=== PATIENT | female | born 1965 | race Caucasian/White ===

== ENCOUNTER 2024-07-08 08:38 | Outpatient (REF) | payer OTHER, SELFPAY ==
[2024-07-08 08:52] LABS: MANUAL DIFF FLAG NO
[2024-07-08 09:26] LABS: Basophils Percent Auto 1.1 % (0-2); Eosinophils Percent Auto 1.1 % (0-4); Hematocrit 41.3 % (37.0-47.0); Hemoglobin 13.7 g/dl (12.0-16.0); Imm Gran Abs Auto 0.01 X10*3/uL (0.00-0.03); Imm Gran Pct Auto 0.3 % (0.0-0.4); Lymphocytes Absolute Auto 1.4 X10*3/uL (1.2-4.9); Lymphocytes Percent Auto 38.7 % (20-40); Mean Corpuscular HGB Conc 33.2 g/dl (31.0-35.0); Mean Corpuscular Hemoglobin 29.1 pg (27.0-33.0); Mean Corpuscular Volume 87.7 fL (80.0-98.0); Mean Platelet Volume 9.1 fL (9.4-12.3); Monocytes Absolute Auto 0.2 X10*3/uL (0.1-1.2); Monocytes Percent Auto 6.3 % (2-11); Neutrophils Absolute Auto 1.8 x10*3/uL (2.0-8.3); Neutrophils Percent Auto 52.5 % (45-73); Platelet Count 276 X10*3/uL (160-400); Red Blood Count 4.71 X10*6/uL (4.20-5.50); Red Cell Distribution Width 11.9 % (11.0-16.0); White Blood Count 3.5 X10*3/uL (4.8-10.8)
[2024-07-08 09:34] LABS: Estimated Average Glucose 105 mg/dL; Hemoglobin A1C 115.9673 umol/L; Hemoglobin A1c % 5.3 % (<6.0); Total Hemoglobin (HGBA1C) 3409.4067 umol/L
[2024-07-08 09:53] LABS: Alanine Aminotransferase 21 U/L (0-31); Albumin Level 4.4 g/dL (3.5-5.0); Alkaline Phosphatase 76 U/L (39-117); Anion Gap 12 (12-20); Aspartate Amino Transferase 18 U/L (5-31); Bilirubin Total 0.7 mg/dL (0.0-1.0); Blood Urea Nitrogen 12 mg/dL (9-16); Calcium 9.6 mg/dL (8.4-10.2); Carbon Dioxide 26 mmol/L (22-29); Chloride 109 mmol/L (96-108); Cholesterol 193 mg/dL (<200); Estimated Glomerular Filt Rate > 60; Glucose Random 87 mg/dL (60-115); HDL Cholesterol 73 mg/dL (>40); LDL Cholesterol Calculated 107 mg/dL (<100); Potassium 4.2 mmol/L (3.3-5.1); Sodium 143 mmol/L (135-145); Total Protein 6.9 g/dL (6.5-8.0); Triglycerides 67 mg/dL (<150)
[2024-07-08 10:10] LABS: TSH reflex Free T4 2.17 uIU/mL (0.32-4.0)
[2024-07-08 10:18] LABS: Folate 11.9 ng/mL (> or = 4.0); Vitamin B12 404 pg/mL (200-900)
[2024-07-10 19:08] LABS: Lyme Abs Screen <0.90 index
[2024-07-12 13:18] LABS: Vitamin D 25-OH, D2 <4 ng/mL; Vitamin D 25-OH, D3 13 ng/mL; Vitamin D 25-OH, Total 13 ng/mL (30-100)
[2024-07-13 18:19] LABS: N-Telopeptide 152 (see note); NTXCreaRU 128 mg/dL (20-275)
[2024-07-14 00:02] LABS: VITAMIN D (1,25 OH) D3 50 pg/mL; Vit D (1,25-Dihydroxy) Total 50 pg/mL (18-72); Vitamin D (1,25 OH) D2 <8 pg/mL
== END 2024-07-08 08:39 | disposition home or self-care (01) ==
LOC: HO.LAB 08:38
PROVIDERS: PCP Internal Medicine; Visit Provider Internal Medicine
DX: R53.83 Other fatigue (principal); M81.0 Age-related osteoporosis without current pathological fracture; G62.9 Polyneuropathy, unspecified; Z13.220 Encounter for screening for lipoid disorders; Z13.228 Encounter for screening for other metabolic disorders; Z13.1 Encounter for screening for diabetes mellitus
CPT/HCPCS: 36415; 80053; 80061; 82306; 82523; 82607; 82652; 82746; 83036; 84443; 85025; 86617; 86618

== ENCOUNTER 2024-09-08 14:37 | Outpatient (AMB) | payer OTHER, SELFPAY ==
--- NOTE | 2024-09-08 14:06 | A.OFFPC_ITS ---
Vital Signs 09/08/24 14:49 Height 5 ft 8.11 in Weight 144 lb 6 oz BMI 21.9 BP 118/76 Blood Pressure Location Lt brachial Position Sitting Respiration 14 Pulse 73 Pulse Source Pulse Oximeter Pulse Oximetry (%) 98 Oxygen Delivery Method Room Air Intake Visit Reasons: Est. Care Intake Note: New patient visit Employment Program Representative Required: No Allergies Penicillins Allergy (Unknown, Verified 09/08/24 14:08) Unknown sulfamethoxazole [From Bactrim] Allergy (Unknown, Verified 09/08/24 14:08) Unknown trimethoprim [From Bactrim] Allergy (Unknown, Verified 09/08/24 14:08) Unknown Tobacco use date assessed: 09/08/24 Dental Screening Dental Screen Date: 09/08/24 Did you have a dental visit in the last 12 months?: Yes Did you have a dental problem in the last 6 months where you did not have access to dental care?: No Was dental information given to patient?: Patient has dentist HPI HPI Comments History of Present Illness Details 59 year old female with a past medical h istory of chronic cough, microscopy hematuria, osteopenia, peripheral neuropathy presenting for physical exam Patient has a history of bilateral leg, foot numbness, hand numbness tingling. Started in 40s. Sometimes leg feel weak. Has stayed pretty stable over time. 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 Chronic cough, recurrent sore throat: stable. has seen pulmonary. Family history of thyroid disease. On allergy medications. No fevers, LN, abnormal weight loss Mammo, DXA due Pap 2018-she says she will call to schedule Colonoscopy-2021 ROS CONSTITUTIONAL: Denies weight loss, fever and chills. HEENT: Denies changes in vision and hearing. RESPIRATORY: Denies SOB and cough. CV: Denies palpitations and CP GI: Denies abdominal pain, nausea, vomiting and diarrhea. : Denies dysuria and urinary frequency. MSK: Denies new myalgia and joint pain. SKIN: Denies rash and pruritus. NEUROLOGICAL: Denies headache PSYCHIATRIC: Denies recent changes in mood. PHYSICAL EXAM: GENERAL: Alert and oriented x 3. NAD EYES: EOMI. Anicteric. HENT: Moist mucous membranes. No scleral icterus. No cervical lymphadenopathy. LUNGS: Clear to auscultation bilaterally. CARDIOVASCULAR: Regular rate and rhythm. No murmur. No JVD. ABDOMEN: Soft, non-tender +bs EXTREMITIES: No edema. Non-tender. SKIN: No rashes or lesions. Warm. NEUROLOGIC: No focal neurological deficits. CN II-XII grossly intact PSYCHIATRIC: Cooperative. 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 Current occupational exposures/hazards: No Cognitive needs: No Hearing needs: No Vision needs: Yes (reading glasses) Questionnaire Thrive Questionnaire Date Thrive assessed: 07/31/24 Physical exam (Primary Care) Vital Signs: Last Vital Signs Pulse 73 09/08/24 14:49 Resp 14 09/08/24 14:49 BP 118/76 09/08/24 14:49 Pulse Ox 98 09/08/24 14:49 Oxygen Delivery Method Room Air 09/08/24 14:49 BMI result Body Mass Index 21.9 Tobacco/Smoking Status: Tobacco use Status Tobacco use date assessed 09/08/24 09/08/24 14:51 Patient Tobacco Use Status Never used Tobacco 09/08/24 14:51 e-Cigarette/Vaping Use Never Used 09/08/24 14:51 Thrive Assessment: Date of Thrive Assessment Date Thrive assessed 07/31/24 09/08/24 14:10 Coding Level of Care Code Est Pt Prev Care 40-64y(37639) Diagnoses Physical exam Z00.00 Peripheral polyneuropathy G62.9 Peripheral neuropathy type: polyneuropathy, unspecified Assessment & Plan Assessment & Plan (1) Physical exam: Code(s): Z00.00 - Encounter for general adult medical examination without abnormal findings Category: Medical Plan: 59 year old female for physical exam. Chronic medical conditions reviewed. Interval history reviewed. Medications reconciled (2) Peripheral neuropathy: Code(s): G62.9 - Polyneuropathy, unspecified Category: Medical Qualifiers: Peripheral neuropathy type: polyneuropathy, unspecified Qualified Code(s): G62.9 - Polyneuropathy, unspecified Plan: Discussed EMG, MRI. there has been no progression of disease so she declines Orders: Orders MM screening mammo BI 09/08/24 Z12.31 - Encounter for screening mammogram for malignant neoplasm of breast XR DEXA axial skeleton 09/08/24 M81.0 - Age-related osteoporosis without current pathological fracture
[2024-09-08 14:49] VITALS: BP 118/76; PULSE 73; RESP 14; O2SAT 98; BMI 21.9
--- OUTSIDE RECORDS SUMMARY | 2024-09-08 16:19 | XMS_ITS | Clinical Summary ---
Author Organization [facility] [facility] lin Address [address] [place] [address] Care Team Providers Care Associate Spa Director Name Role Phone Unavailable Primary Care Provider Unavailabl e Social History Tobacco Use Types Packs/Day Years Used Date Smoking Tobacco: Never Assessed Comments Unknown Sex and Gender Information Value Date Recorded Sex Assigned at Not on file Legal Sex Female 6:39 AM EDT Gender Identity Not on file Sexual Orientation Not on file Last Filed Vital Signs Vital Sign Reading Time Taken Comments Blood Pressure - - Pulse 94 02/25/2021 10:28 AM EDT Temperature 36.7 ??C (98 ??F) 02/25/2021 10:28 AM EDT Respiratory Rate - - Oxygen Saturation 99% 02/25/2021 10:28 AM EDT Inhaled Oxygen Concentration - - Weight - - Height - - Body Mass Index - - Plan of Treatment Health Maintenance Due Date Last Done Comments Colorectal Cancer: COLONOSCO PY Screening every 10 yrs (or Modifier) 1964 Depression: Screening Annual ly using PHQ-2/9 in Adults 18 yrs or above (or HM Modifier)([facility]) 1982 Hepatitis C Virus Infection in Adolescents and Adults: Screening (or Modifier) ([facility]) 1982 SDLA Screening Reminder: Annually for all adults ([facility]) 1982 Tobacco Smoking Cessation: i n Adults excluding Women: Behavioral and Pharmacotherapy Interventions ([facility]) 1982 DTaP/Tdap/Td Vaccines ([facility]) (1 - Tdap) 1983 Cervical Cancer Screenin-65 yrs of age (or Modifier) 1985 Cervical Cancer Screening: P ap every 3 yrs pts age 21-65 1985 Cervical Cancer: Pap Screeni ng with Modifier timing ([facility]) 1985 Cervical Cancer: hrHPV alone or with cotesting Pap for Pts 30-65yrs screening every 5yrs ([facility]) 1985 Colorectal Cancer Screening 45 -75 Yrs (or HM Modifier) 2009 Colorectal Cancer: FLEXIBLE SIGMOIDOSCOPY Screening every 5 yrs 2009 Colorectal Cancer: Fecal Immunochemical Test (FIT) Annually [facility] 2009 Colorectal Cancer: High-sensitivity gFOBT Screening Annually [facility] 2009 Colorectal Cancer: Stool Cologuard Screening every 3 yrs 2009 Colorectal Cancer:CT Colonography Screening every 5 yrs 2009 Lipid Screening: Every 5 yrs for Women aged 45+ (or HM Modifier) ([facility]) 2010 Breast Cancer: Screening Annually age 50-74 yrs (or HM Modifier)([facility]) 2014 Zoster/Shingles Vaccine Seri es Screening: Adults aged 18+ yrs (or HM Modifiers)([facility]) (1 of 2) 2014 Flu Vaccination: Yearly for ages 18mos through 64 years (or Modifier)([facility]) 02/03/2024 COVID-19 Vaccine Screening: Initial Series and Booster Status ([facility]) (3 - 2023-25 season) 2024 10/29/2020, 09/25/2020 RSV Vaccines (1 - 1-dose 75+ series) 2039 Pneumococcal Vaccination Screening: Pts 0-19 & 19-64 yrs of age ([facility]) Aged Out No longer eligible based on patient's age to complete this topic Medical Devices Not on file Insurance [facility]
--- OUTSIDE RECORDS SUMMARY | 2024-09-08 16:19 | XMS_ITS | Clinical Summary ---
Author Organization [facility] Address [address] [place] [address] Care Team Providers Care Miner Pick Name Role Phone Unavailable Primary Care Provider Unavailabl e Source Comments PLEASE NOTE, if this patient is a minor, it may be UNLAWFUL to discuss sensitive information that is contained in these records (such as FAMILY PLANNING, MENTAL HEALTH or SUBSTANCE ABUSE) with the minor patient's parent or other person without the patient's specific authorization.[facility] Immunizations Name Administration Dates Next Due Moderna COVID-19 Vaccine, re d cap blue label, 12+ Primary Series 10/29/2020,09/25/2020 Social History Tobacco Use Types Packs/Day Years Used Date Smoking Tobacco: Never Assessed Social Connections Answer Date Recorded Social Connections and Isolation 0 09/25/2020 Financial Resource Strain Answer Date R ecorded Financial Resource Strain 0 2020 Stress Answer Date Recorded Stress 0 09/25/2020 Physical Activity Answer Date Recorded Physical Activity 0 09/25/2020 Food Insecurity Answer Date Recorded Food 0 09/25/2020 Transportation Needs Answer Date Record ed Transportation 0 09/25/2020 Housing Stability Answer Date Recorded Housing 0 09/25/2020 Safety and Environment Answer Date Bernardo rded Safety 0 09/25/2020 Utilities Answer Date Recorded Utilities 0 09/25/2020 Employment Answer Date Recorded Employment 0 09/25/2020 Comments Unknown Sex and Gender Information Value Date Recorded Sex Assigned at Not on file Legal Sex Female 10:50 AM PDT Gender Identity Not on file Sexual Orientation Not on file Plan of Treatment Health Maintenance Due Date Last Done Comments Diabetes Screening 1964 HPV Screening 1964 Hepatitis C Screening 1964 Lipid Screening 1964 Pap + HPV 1964 Tobacco Screening 1964 HIV Screening 1979 Annual Preventive Care Visit 1982 Hypertension Screening (#1) 1982 Imm-DTaP/Tdap/Td (1 - Tdap) 1983 Cervical Cancer Screening 1985 Pap Smear 1985 Breast Cancer Screening (Mammogram) 2004 CT Colonography 2009 Colonoscopy 2009 Colorectal Cancer Screening 2009 FIT/gFOBT 2009 Fecal DNA 2009 Flexible Sigmoidoscopy 2009 Imm-Zoster, Recombinant (1 o f 2) 2014 [id number] ( season) 2024 10/29/2020, 09/25/2020 Imm-Influenza (#1) 2024 06/03/2020 Alcohol and Drug Screen 07/05/2024 Depression Annual Screen 07/05/2024 Cervical Ablation/Cold-Knife Conization Discontinued Cervical Cryotherapy Discontinued Colposcopy Discontinued Endometrial Biopsy Discontinued Excision/Leep Discontinued HPV Genotyping Discontinued Imm-Hepatitis B Aged Out No longer el igible based on patient's age to complete this topic Vaginal Pap Discontinued Vulvoscopy Discontinued Insurance [facility] Member Subscriber Plan / Payer (Ef fective 2017-Present) Name:Azucena Manley Relation to Subscriber:Self Name:Azucena Manley Payer ID:[id number] Group ID:Not on file Type:Indemnity Address: [facility] [address] [place] [address]
== END 2024-09-08 15:17 | disposition home or self-care (01) ==
PROVIDERS: PCP Internal Medicine; Visit Provider Internal Medicine
DX: Z00.00 Encounter for general adult medical examination without abnormal findings (principal); G62.9 Polyneuropathy, unspecified

== ENCOUNTER 2025-04-19 15:00 | Outpatient (AMB) | payer OTHER, SELFPAY ==
--- NOTE | 2025-04-19 15:04 | A.OFFVIS_ITS ---
Vital Signs 04/19/25 15:07 Height 5 ft 9.37 in Weight 139 lb 12.369 oz BMI 20.4 BP 117/62 Blood Pressure Location Lt brachial Position Sitting Pulse 72 Pulse Source Pulse Oximeter Pulse Oximetry (%) 97 Oxygen Delivery Method Room Air Intake Visit Reasons: Age-related osteoporosis without current pathologi Intake Note: New patient present today for osteoporosis. Accompanied by: Self / Same As Patient Allergies Penicillins Allergy (Unknown, Verified 04/19/25 15:11) Unknown sulfamethoxazole (From Bactrim) Allergy (Unknown, Verified 04/19/25 15:11) Unknown trimethoprim (From Bactrim) Allergy (Unknown, Verified 04/19/25 15:11) Unknown Medication List - Last Reconciled 04/19/25 by Fredy Jain MD carboxymethylcellulose sodium 0.5% (Refresh Tears) 1 drp ophthalmic (eye) BID cholecalciferol (vitamin D3) 50 mcg PO DAILY HPI Comments Details: 59 YO Female is seen in consultation at the request of PCP for Osteoporosis. First diagnosed in 3 yrs ago . Not Received treatment in the past No history of adult pathologic fracture or ONJ. Has several servings of dietary calcium per day in the form of cheese, broccoli , fruit , guatemalan cheese . Not Takes Calcium supplement mg daily in divided doses. Takes 1000 IU of Vitamin D daily. Denies ever using PPI, anticoagulant, antiepileptic or glucocorticoid medication. Does weight bearing exercise 3 days per week in the form of lifting grandmother . 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 UTD on dental cleanings and sees dentist every 6 months. No planned upcoming dental work or extractions.Has crown placed 04/30/2025 No tobacco us or heavy ETOH use DXA dated 02/26/25:T Score -3.2 in femoral neck Labs: [facility] Surgical History History of surgery on upper extremity Family History Mother Hypothyroidism Sister Asthma Multiple sclerosis Daughter Hypothyroidism Other Cancer of breast Social History (Reviewed 04/19/25 @ 15:13 by Lorin Diaz 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 Absence of blue sclera. Absence of kyphosis. Thyroid gland is of nl size and weighs 15 gms. There are no thyroid nodules palpated. Lungs CTA. Heart S1 S2 Reg R/R Abdominal exam benign. Muscle strength 5/5 . Examination of spine reveals absence of tenderness on palpation Assessment & Plan Assessment & Plan (1) Osteoporosis: Code(s): M81.0 - Age-related osteoporosis without current pathological fracture Category: Medical Plan: Is a 59-year-old white female found to have osteoporosis with partial secondary workup finding low vitamin-D level. Plan is to recheck 25 hydroxy vitamin-D, phosphorus level, 24 hour urine for calcium and creatinine, urine immunofixation. Patient should continue with the vitamin-D supplementation and take a total of 1200 mg of calcium intake per day. Assuming secondary workup is negative could consider use of anabolic therapy in the future but may hold off to see what effect vitamin-D repletion has on the bone density prior to starting Orders: Orders Vitamin D 25-OH Total Today M81.0 - Age-related osteoporosis without current pathological fracture Phosphorus 10 Weeks M81.0 - Age-related osteoporosis without current pathological fracture Creatinine, 24 Hr Group 10 Weeks M81.0 - Age-related osteoporosis without current pathological fracture Calcium, 24 Hr Ur 10 Weeks M81.0 - Age-related osteoporosis without current pathological fracture Immunofixation, Random Urine 10 Weeks M81.0 - Age-related osteoporosis without current pathological fracture Coding Level of Care Code New Pt Level 4 (20508) Diagnoses Osteoporosis M81.0
[2025-04-19 15:07] VITALS: BP 117/62; PULSE 72; O2SAT 97; BMI 20.4
--- OUTSIDE RECORDS SUMMARY | 2025-04-19 18:55 | XMS_ITS | Clinical Summary ---
Author Organization [facility] [employer] [facility] lin Address [address] [place] [address] Care Team Providers Care Metal Sorter Name Role Phone Unavailable Primary Care Provider [...] 94 02/25/2021 10:28 AM EDT Temperature 36.7 C (98 F) 02/25/2021 10:28 AM EDT Respiratory Rate - [...] Adults 18 yrs or above (or HM Modifier)([facility]) 1982 Hepatitis C Virus Infection in Adolescents and Adults: Screening (or Modifier) ([facility]) 1982 [facility] Screening Reminder: Marcela laurel for all adults ([facility]) 1982 Tobacco Smoking Cessation: i n Adults excluding Women: Behavioral and Pharmacotherapy Interventions ([facility]) 1982 DTaP/Tdap/Td Vaccines ([facility]) (1 - Tdap) 1983 Cervical Cancer Screenin 1-65 yrs of age (or Modifier) 1985 Cervical Cancer Screening: P ap every 3 yrs pts age 21-65 1985 Cervical Cancer: Pap Screeni ng with Modifier timing ([facility]) 1985 Cervical Cancer: hrHPV alone or with cotesting Pap for Pts 30-65yrs screening every 5yrs ([facility]) 1985 Colorectal Cancer Screening 45 -75 Yrs (or HM Modifier) 2009 Colorectal Cancer: FLEXIBLE SIGMOIDOSCOPY Screening every 5 yrs 2009 Colorectal Cancer: Fecal Imm unochemical Test (FIT) [facility] 2009 Colorectal Cancer: High-sens itivity gFOBT Screening Annually [facility] 2009 Colorectal Cancer: Stool Col oguard Screening every 3 yrs 2009 Colorectal Cancer:CT Colonog robert Screening every 5 yrs 2009 Breast Cancer: Screening Marcela ually age 50-74 yrs (or HM Modifier)([facility]) 2014 Pneumococcal Vaccination Scr eening: Patients 50+ yrs of age ([facility]) (1 of 1 - PCV) 2014 Zoster/Shingles Vaccine Seri es Screening: Adults aged 18+ yrs (or HM Modifiers)([facility]) (1 of 2) 2014 Flu Vaccination: Yearly for ages 18mos through 64 years (or Modifier)([facility]) 02/02/2025 COVID-19 Vaccine Screening: Initial Series and Booster Status ([facility]) ( - 2024- season) 2025 10/29/2020, 09/25/2020 RSV Vaccines (1 - 1-dose 75+ series) 2039 Medical Devices Not on file Insurance [facility]
== END 2025-04-19 16:27 | disposition home or self-care (01) ==
LOC: HO.ENCR 15:00
PROVIDERS: PCP Internal Medicine; Visit Provider Internal Medicine Endocrinology, Diabetes & Metabolism
DX: M81.0 Age-related osteoporosis without current pathological fracture (principal)
CPT/HCPCS: 99204